=== PATIENT | female | born 2000 | race Caucasian/White ===

== ENCOUNTER → 2025-01-06 12:13 | Outpatient (BNVA) | payer MEDICAID, SELFPAY | PROVIDERS: PCP Family Medicine; Visit Provider Internal Medicine | DX: E27.9 Disorder of adrenal gland, unspecified (principal) | CPT/HCPCS: 36415; 80048; 84244 ==

== ENCOUNTER → 2025-02-25 12:15 | Outpatient (BNVA) | payer MEDICAID, SELFPAY | PROVIDERS: PCP Family Medicine; Visit Provider Internal Medicine | DX: E27.40 Unspecified adrenocortical insufficiency (principal); E27.9 Disorder of adrenal gland, unspecified | CPT/HCPCS: 99214 ==